=== PATIENT | female | born 1930 | race Caucasian/White ===

== ENCOUNTER → 2016-05-05 | Outpatient (CLI) | payer MEDICARE | LOC: RAD 14:31 | DX: R05 Cough (principal); J42 Unspecified chronic bronchitis; K44.9 Diaphragmatic hernia without obstruction or gangrene | CPT/HCPCS: 71020 ==

== ENCOUNTER → 2016-07-15 | Outpatient (CLI) | payer MEDICARE | LOC: RAD 08:00 | DX: R19.5 Other fecal abnormalities (principal) | CPT/HCPCS: 74270 ==

== ENCOUNTER 2020-02-18 11:09 | Emergency (ER) | payer MEDICARE ==
[~2020-02-18 11:09] MED LIST: CARDIZEM 90MG T90 MG PO; CARDIZEM CD120 MG PO; CEFDINIR300 MG PO; CYMBALTA 30 MG30 MG PO; DITROPAN 5 MG TA5 MG PO; ECOTRIN81 MG PO; ELIQUIS2.5 MG PO; FISH OIL + D31 EACH PO; FISH OIL 1,0001 EACH PO; GABAPENTIN400 MG PO; LEVOFLOXACIN250 MG PO; LISINOPRIL10 MG PO; LISINOPRIL20 MG PO; LOPRESSOR 25 MG25 MG PO; LOPRESSOR 50 MG50 MG PO; MIRALAX17 GM PO; NEURONTIN 400400 MG PO; OMEPRAZOLE20 MG PO; SINGULAIR10 MG PO; THERAGRAN M TAB1 EA PO; TYLENOL 325MG325 MG PO; VITAMIN B-121000 MCG PO; ZOFRAN ODT 4 MG4 MG PO; ZOFRAN4 MG PO; ZYRTEC10 MG PO
[2020-02-18 12:07] LABS: HEMOGLOBIN 15.6 gm/dl (12.3-15.3); RED BLOOD COUNT 5.2 M/UL (4.00-5.10)
[2020-02-18 12:35] LABS: BUN/CREATININE RATIO 13 (0-10)
[2020-02-18] MEDS ORDERED: OMNICEF 300 MG300 MG PO (13:16)
[2020-02-18] MEDS ORDERED: DOXYCYCLINE HY100 MG PO (13:16)
== END 2020-02-18 14:00 | disposition home or self-care (01) ==
LOC: ER1 11:09
PROVIDERS: Emergency Medicine
DX: J18.9 Pneumonia, unspecified organism (principal); E87.6 Hypokalemia; I48.91 Unspecified atrial fibrillation; I10 Essential (primary) hypertension; Z20.822 Contact with and (suspected) exposure to COVID-19; Z79.01 Long term (current) use of anticoagulants; Z79.899 Other long term (current) drug therapy; Z87.01 Personal history of pneumonia (recurrent); Z88.5 Allergy status to narcotic agent; Z88.6 Allergy status to analgesic agent; Z88.8 Allergy status to other drugs, medicaments and biological substances
CPT/HCPCS: 71045; 80053; 82550; 82553; 83874; 83880; 84484; 85025; 93005; 99285; U0002